=== PATIENT | male | born 1990 | race Caucasian/White ===

== ENCOUNTER 2021-05-19 19:01 | Emergency (ER) | payer SELFPAY ==
[~2021-05-19] VITALS: Ht 177.8 cm; Wt 68.0 kg
[2021-05-19] MEDS: BACITRACIN ZINC OINT PACKET 1 EA PACKET TP ONE (19:30)
[2021-05-19] MEDS: TDAP [DIPH/PERTUSSIS/TET] 0.5 ML VIAL IM ONE (19:48)
[2021-05-19] MEDS ORDERED: LIDOCAINE 1%-EPI 1:100,000 20 ML VIAL ONE (20:01)
[2021-05-19] MEDS: LIDOCAINE 1%-EPI 1:100,000 20 ML VIAL TP ONE (21:09)
[2021-05-19 21:54] VITALS: BP 128/77
--- NOTE | 2021-05-19 21:54 | NUR ---
Patient discharged to home in stable condition. Written and verbal after care instructions given. Patient verbalizes understanding of instruction.
== END 2021-05-19 21:54 | disposition home or self-care (01) ==
LOC: ER 19:03
DX: S01.111A Laceration without foreign body of right eyelid and periocular area, initial encounter (principal); F10.129 Alcohol abuse with intoxication, unspecified; V00.131A Fall from skateboard, initial encounter; Y93.51 Activity, roller skating (inline) and skateboarding; Y92.89 Other specified places as the place of occurrence of the external cause; Y99.8 Other external cause status; Y90.9 Presence of alcohol in blood, level not specified
CPT/HCPCS: 12013; 70450; 99284; J3490

== ENCOUNTER 2021-05-20 04:31 | Emergency (ER) | payer MEDICAID ==
[~2021-05-20] VITALS: Ht 172.7 cm; Wt 68.0 kg
--- NOTE | 2021-05-20 05:00 | NUR ---
TO ER BED 18. BIBS "WANTS TO GET PSYCH EVALUATED" DENIES SI & HI WAS D/C'D EARLIER TODAY. AAOX4, NOT IN RESPIRATORY DISTRESS, KEPT RESTED AND COMFORTABLE. WILL CONTINUE TO MONITOR.
--- NOTE | 2021-05-20 05:21 | NUR ---
URINE COLLECTED AND SENT TO LAB
[2021-05-20 05:33] LABS: BASOPHILS % (AUTO) 0.2 % (0.0-2.0); EOSINOPHILS % (AUTO) 0.5 % (0.0-6.0); HEMATOCRIT 45 % (39-51); HEMOGLOBIN 15.1 g/dL (13.5-17.5); LYMPHOCYTES # (AUTO) 1.6 K/uL (0.8-4.8); LYMPHOCYTES % (AUTO) 18.9 % (20.0-44.0); MEAN CORPUSCULAR HGB CONC 34 g/dl (31.0-36.0); MEAN CORPUSCULAR VOLUME 84 fL (80-96); MONOCYTES # (AUTO) 0.6 K/uL (0.1-1.30); MONOCYTES % (AUTO) 7.9 % (2.0-12.0); NEUTROPHILS # (AUTO) 5.9 K/uL (1.8-8.9); NEUTROPHILS % (AUTO) 72.5 % (43.0-81.0); PLATELET COUNT (AUTO) 254 K/uL (150-450); RED BLOOD CELL COUNT(AUTO) 5.35 MIL/uL (4.5-6.0); WHITE BLOOD COUNT (AUTO) 8.2 K/uL (4.3-11.0)
[2021-05-20 05:40] LABS: BILIRUBIN,URINE NEGATIVE (NEGATIVE); COLOR,URINE YELLOW (YELLOW); LEUKOCYTE ESTERASE ,URINE NEGATIVE (NEGATIVE); NITRITE, URINE NEGATIVE (NEGATIVE); PH,URINE 5.5 (5.0-8.0); PROTEIN,URINE NEGATIVE (NEGATIVE); UGLUCOSE NEGATIVE (NEGATIVE); UROBILINOGEN,URINE 0.2 EU/dL (0.2)
[2021-05-20 05:48] LABS: ALANINE AMINOTRANSFERASE 25 U/L (12-78); ALBUMIN 4.5 g/dL (3.4-5.0); ALCOHOL, BLOOD 21 mg/dL (0-0); ALKALINE PHOSPHATASE 79 U/L (46-116); ASPARTATE AMINOTRANSFERASE 19 U/L (15-37); BILIRUBIN,DIRECT 0.2 mg/dL (0.0-0.2); BILIRUBIN,TOTAL 0.8 mg/dL (0.2-1.0); CALCIUM, SERUM 9.3 mg/dL (8.5-10.1); CARBON DIOXIDE 28 mmol/L (21-32); CHLORIDE 104 mmol/L (98-107); CREATININE 0.9 mg/dL (0.6-1.3); GLUCOSE 90 mg/dL (74-106); POTASSIUM 3.8 mmol/L (3.5-5.1); SODIUM SERUM 142 mmol/L (136-145); TOTAL PROTEIN, SERUM 7.6 g/dL (6.4-8.2); UREA NITROGEN, BLOOD 14 mg/dL (7-18)
[2021-05-20 06:35] LABS: ACETAMINOPHEN < 0 ug/ml (10-30)
[2021-05-20 06:40] LABS: BACTERIA,URINE None seen /HPF (None Seen); RBC,URINE 0-2 /HPF (0-2); SQUAMOUS EPITHELIAL CELL,UR Few /HPF (None Seen); WBC,URINE 0-2 /HPF (0-3)
--- NOTE | 2021-05-20 07:08 | NUR ---
covid swab collected and sent to lab
--- NOTE | 2021-05-20 09:31 | NUR ---
In No obvious Distress -Ambulatory allowed to use the phone for calls. Breakfast served Ate 100%
--- NOTE | 2021-05-20 10:17 | NUR ---
Re-evaluated by Dr Dawn. Medically cleared by same. Denies any Suicidal Ideation/intent at this time Pt states "wanting to go to a Rehab Facility" Does NOT want to wait and see if So[facility] availability for beds and is opting to go back to previous living condition. Ambulatory gait even and steady
[2021-05-20 10:25] VITALS: BP 118/70
[2021-05-20] MEDS ORDERED: LORAZEPAM 1 MG TABLET PO ONE (10:30)
== END 2021-05-20 10:25 | disposition home or self-care (01) ==
LOC: ER 04:38
DX: R45.851 Suicidal ideations (principal); F32.A Depression, unspecified; Z53.29 Procedure and treatment not carried out because of patient's decision for other reasons; Z20.822 Contact with and (suspected) exposure to COVID-19
CPT/HCPCS: 36415; 80048; 80076; 80143; 80307; 80320; 81001; 85025; 87426; 99285; C9803; G0480